=== PATIENT | female | born 1970 ===

== ENCOUNTER 2021-03-24 07:04 | Day surgery (SDC) | payer BC ==
[~2021-03-24] VITALS: Ht 149.9 cm; Wt 83.6 kg
[2021-03-24] MEDS ORDERED: VTAMINC250TA (07:46)
[2021-03-24] MEDS ORDERED: MULTIVITAMIN SEN (07:47)
[2021-03-24] MEDS ORDERED: CALCIUM 600MG+D1 TAB PO (07:48)
[2021-03-24 07:51] VITALS: BP 145/83; PULSE 70; TEMP 98.2
[2021-03-24 09:25] VITALS: BP 122/52; PULSE 70; TEMP 96.9
[2021-03-24 09:30] VITALS: BP 116/72; PULSE 66
[2021-03-24 09:45] VITALS: BP 122/61; PULSE 62
[2021-03-24 10:00] VITALS: BP 112/67; PULSE 61
[2021-03-24 10:15] VITALS: BP 120/67; PULSE 61
--- NOTE | 2021-03-24 10:44 | NUR ---
0925 Pt returns from Endo procedure via cart. Pt ambulates from cart to recliner with RN assist. Monitors on and alarms set. Call light within reach. Family present in room. Pt alert and oriented. Report received from [facility]. Pt requests water. Pt denies any pain or nausea and voices no other complications. 0940 Pt taking water well. No complications voiced. 1030 Discharge instructions given to pt and . All questions answered to their satisfaction. Handed to them are a thank you card and discharge information. 1044 Pt transferred out of hospital via wheelchair and this RN assist to private vehicle driven by .
== END 2021-03-24 10:44 | disposition home or self-care (01) ==
LOC: SDCO 07:04
DX: Z12.11 Encounter for screening for malignant neoplasm of colon (principal); E66.9 Obesity, unspecified; Z68.39 Body mass index [BMI] 39.0-39.9, adult; Z79.899 Other long term (current) drug therapy; Z20.822 Contact with and (suspected) exposure to COVID-19; Z80.1 Family history of malignant neoplasm of trachea, bronchus and lung
CPT/HCPCS: J2704; J7030